=== PATIENT | female | born 1955 | race Caucasian/White ===

== ENCOUNTER 2018-12-14 11:04 | Emergency (ER) | payer MEDICARE, MEDICAID ==
[~2018-12-14] VITALS: Ht 149.9 cm; Wt 61.7 kg
[2018-12-14 11:42] VITALS: BP_SYST 118
[2018-12-14 12:16] LABS: BASOPHILS % (AUTO) 0.3 % (0.0-2.0); HEMATOCRIT 37.4 % (36-48); HEMOGLOBIN 12.1 g/dL (12.0-16.0); LYMPHOCYTES # (AUTO) 1.5 K/uL (1.0-5.5); MEAN CORPUSCULAR HEMOGLOBIN 27 pg (27-31); MEAN CORPUSCULAR HGB CONC 32 % (32-36); MEAN CORPUSCULAR VOLUME 84 fL (79.0-98.0); MONOCYTES # (AUTO) 0.3 K/uL (0.0-1.0); MONOCYTES % (AUTO) 3.6 % (1.7-9.3); NEUTROPHILS # (AUTO) 7.4 K/uL (1.8-7.7); NEUTROPHILS % (AUTO) 80.1 % (40.0-70.0); PLATELET COUNT (AUTO) 241 K/uL (130-430); RED BLOOD CELL COUNT(AUTO) 4.45 MIL/uL (4.2-6.2); RED CELL DISTRIBUTION WIDTH 13.8 % (9.0-15.0); WHITE BLOOD COUNT (AUTO) 9.2 K/uL (4.8-10.8)
[2018-12-14 12:24] LABS: ANION GAP 8 (5-15); CALCIUM 9.9 mg/dL (8.4-11.0); CHLORIDE 105 mmol/L (98-107); CREATININE 0.85 mg/dL (0.55-1.30); GLUCOSE 161 mg/dL (70-99); POTASSIUM 4.4 mmol/L (3.5-5.1); SODIUM SERUM 137 mmol/L (136-145); UREA NITROGEN, BLOOD 11 mg/dL (8-21)
[2018-12-14 12:26] LABS: GFR AFRICAN AMERICAN 87 mL/min (>90)
[2018-12-14 12:29] LABS: PROTHROMBIN TIME 10.2 SECS (9.5-12.5)
[2018-12-14 12:30] LABS: ALANINE AMINOTRANSFERASE 21 U/L (12-78); ALBUMIN 3.5 g/dL (3.4-4.8); ASPARTATE AMINOTRANSFERASE 17 U/L (10-37); TOTAL BILIRUBIN 0.2 mg/dL (0.0-1.0); URIC ACID 4.9 mg/dL (2.4-7.0)
[2018-12-14 12:49] LABS: C-REACTIVE PROTEIN QUANT < 0.2 mg/dL (0-0.5)
--- NOTE | 2018-12-14 13:16 | NUR ---
Patient to ER bed 6 to gown for evaluation. Side rails up. Report given to Ulisses MARTINEZ.
--- NOTE | 2018-12-14 13:30 | NUR ---
PT PRESENTS TO ED C/O L KNEE PAIN.PT SEEN AND GIVEN RX FOR SAME COMPLAINT.PT DID NOT FILL RX.
[2018-12-14] MEDS ORDERED: KETOROLAC TROMETHAMINE 60 MG/2 ML VIAL IM ONE (13:45)
--- NOTE | 2018-12-14 13:45 | NUR ---
ER at bedside examining patient.
--- NOTE | 2018-12-14 14:00 | NUR ---
PT TOLERATED MEDICATION WELL.
[2018-12-14 15:02] VITALS: BP_SYST 107
--- NOTE | 2018-12-14 15:02 | NUR ---
Patient given written and verbal discharge instructions and verbalizes understanding. ER MD discussed with patient the results and treatment provided. Patient in stable condition. ID arm band removed. Rx of [place], Motrin given. Patient educated on pain management and to follow up with PMD. Pain Scale 0/10. Opportunity for questions provided and answered. Medication side effect fact sheet provided.
== END 2018-12-14 15:02 | disposition home or self-care (01) ==
LOC: SED 11:04
DX: M25.562 Pain in left knee (principal)
CPT/HCPCS: 36415; 73560; 80053; 84550; 85025; 85610; 85730; 86140; 96372; 99284; J1885